=== PATIENT | female | born 1990 | race Two or more races ===

== ENCOUNTER 2020-04-04 19:29 | Emergency (ER) | payer MEDICAID ==
[~2020-04-04] VITALS: Ht 162.6 cm; Wt 84.0 kg
[2020-04-04 21:03] VITALS: BP 121/76
== END 2020-04-04 21:05 | disposition home or self-care (01) ==
LOC: ER 19:29
DX: J18.9 Pneumonia, unspecified organism (principal)
CPT/HCPCS: 99281